=== PATIENT | male | born 2000 | race Caucasian/White ===

== ENCOUNTER 2023-03-22 13:29 | Outpatient (CLI) | payer BC ==
[~2023-03-22 13:29] MED LIST: Furosemide 40 MG/4 ML VIAL ONE
== END 2023-03-22 13:30 | disposition home or self-care (01) ==
LOC: NM 13:29
PROVIDERS: ATTEND Urology
DX: N13.5 Crossing vessel and stricture of ureter without hydronephrosis (principal)
CPT/HCPCS: 78708; A4641; A9562; J1940

== ENCOUNTER 2023-06-22 14:36 | Outpatient (CLI) | payer BC ==
[2023-06-22 17:26] LABS: Bilirubin Neg (Negative); Blood, Urine 25 (Negative); Clarity Clear (Clear); Glucose, Urine (Dipstick) Normal (Negative); Ketone, Urine Negative (Negative); Leukocyte Negative (Negative); Nitrite Negative (Negative); Protein, Urine (Dipstick) 30 mg/dl (Neg-Trace); Specific Gravity, Urine 1.015 (1.005-1.030); Urobilinogen Normal mg/dL (Less than 2)
[2023-06-22 17:48] LABS: RBC/HPF 0-3 HPF (0-3); Squamous Epithelial 0-3 HPF (0-3); WBC/HPF None Seen HPF (0-3)
[2023-06-22 17:49] LABS: Bacteria/HPF Rare-Few HPF (None Seen)
== END 2023-06-22 14:37 | disposition home or self-care (01) ==
LOC: LABBT 14:36
PROVIDERS: ATTEND Urology
DX: Z01.812 Encounter for preprocedural laboratory examination (principal); N13.5 Crossing vessel and stricture of ureter without hydronephrosis
CPT/HCPCS: 81001; 87086

== ENCOUNTER 2023-06-29 10:29 | Day surgery (SDC) | payer BC ==
[2023-06-22 15:53] VITALS: BMI 21.2
[2023-06-29] MEDS ORDERED: LevoFLOXacin 500 mg/D5W 100 ML BAG ONE (11:01)
[2023-06-29] MEDS ORDERED: fentaNYL PF 100 MCG/2 ML SYRINGE ONE ×2 (12:04→13:03)
[2023-06-29] MEDS ORDERED: Lidocaine 1% PF 5 ML VIAL ONE ×2 (12:05→12:42)
[2023-06-29] MEDS ORDERED: Ondansetron PF 4 MG/2 ML Vial ONE ×2 (12:05→12:42)
[2023-06-29] MEDS ORDERED: Midazolam HCl 2 mg/2 ml Vial ONE (12:05)
[2023-06-29] MEDS ORDERED: Dexamethasone 4 mg/ml Vial ONE (12:05)
[2023-06-29] MEDS ORDERED: PROPOFOL 20 ML ONE (12:05)
[2023-06-29] MEDS ORDERED: Dexamethasone 20 MG/5 ML VIAL ONE (12:42)
[2023-06-29] MEDS ORDERED: PROPOFOL 200 MG/20 ML VIAL ONE (12:42)
[2023-06-29] MEDS ORDERED: Ketorolac Tromethamine 30 MG/ML VIAL ONE ×2 (12:42→13:32)
[2023-06-29] MEDS ORDERED: Iopamidol 30 ML ONE (12:58)
[2023-06-29] MEDS ORDERED: Phenazopyridine HCl 100 MG TAB ONE (14:16)
[2023-06-29] MEDS ORDERED: Oxybutynin 5 MG TAB ONE (14:17)
== END 2023-06-29 15:16 | disposition home or self-care (01) ==
LOC: SDC 10:29
PROVIDERS: ATTEND Urology
PROC: 0TV78ZZ Restriction of Left Ureter, Via Natural or Artificial Opening Endoscopic (ICD-10-PCS; principal; 2023-06-29)
DX: N13.5 Crossing vessel and stricture of ureter without hydronephrosis (principal)
CPT/HCPCS: 74420; C1747; C1769; C2617; J1100; J1885; J1956; J2250; J2405; J2704; Q9967

== ENCOUNTER 2023-11-28 13:05 | Outpatient (CLI) | payer OTHER ==
[2023-11-28] MEDS ORDERED: Furosemide 40 MG (4 mL) VIAL ONE (13:28)
== END 2023-11-28 13:06 | disposition home or self-care (01) ==
LOC: NM 13:05
PROVIDERS: ATTEND Urology
DX: N13.5 Crossing vessel and stricture of ureter without hydronephrosis (principal); N28.89 Other specified disorders of kidney and ureter
CPT/HCPCS: 78708; A4641; A9562; J1940